=== PATIENT | male | born 1990 | race Caucasian/White ===

== ENCOUNTER 2022-05-13 18:33 | Emergency (ER) | payer SELFPAY ==
--- NOTE | ~2022-05-13 | XR_ITS ---
EXAMINATION: XR HAND, RIGHT CLINICAL INFORMATION: Slammed thumb in car door COMPARISON: None TECHNIQUE: PA, lateral, and oblique views of the right hand. FINDINGS: The bones and soft tissues are normal. No fracture. Alignment is anatomic. Joint spaces are maintained. No erosions or soft tissue calcifications. XR/XR hand RT 2V IMPRESSION: Normal right hand.
[2022-05-13 19:40] VITALS: BP 115/69; PULSE 65; RESP 16; TEMP 36.6; O2SAT 99; BMI 22.9
--- NOTE | 2022-05-13 19:41 | ED_ITS ---
HPI - Extremity Problem General Chief complaint: Extremity Injury, Upper <Judy Escoto CNP - Last Filed: 05/13/22 19:45> Stated complaint: pinched right hand thumb with car door <Judy Escoto CNP - Last Filed: 05/13/22 19:45> Time Seen by Provider: 05/13/22 22:54 <Judy Escoto CNP - Last Filed: 05/13/22 19:45> Source: patient <Joanna Nguyen MD - Last Filed: 05/13/22 23:28> Mode of arrival: ambulatory <Joanna Nguyen MD - Last Filed: 05/13/22 23:28> Limitations: no limitations <Joanna Nguyen MD - Last Filed: 05/13/22 23:28> History of Present Illness HPI Narrative: Patient comes to the emergency room complaining of left thumb pain. Patient states that yesterday he slammed his thumb in the car door. Patient denies any other injury. <Joanna Nguyen MD - Last Filed: 05/13/22 23:28> Related Data Home medications: Previous Rx's Medication Instructions Recorded acetaminophen 500 mg tablet 500 mg PO Q6H PRN fever or pain 05/13/22 #14 tabs <Judy Escoto CNP - Last Filed: 05/13/22 19:45> Allergies/Adverse reactions: Allergies Allergy/AdvReac Type Severity Reaction Status Date / Time No Known Allergies Allergy Verified 05/13/22 19:44 <Judy Escoto CNP - Last Filed: 05/13/22 19:45> Review of Systems Review of Systems: Constitutional : No Weight loss, No Fever, No Chills, No Night Sweats, No Fatigue, No Malaise ENT/Mouth : No Hearing loss, No Ear Pain, No Nasal Congestion, No Sinus Pain, No Hoarseness, No sore throat, No Rhinorrhea, No Swallowing Difficulty Eyes: No Eye Pain, No Swelling, No Redness, No Foreign Body, No Discharge, No Vision Changes Cardiovascular : No Chest Pain, No SOB, No Dyspnea on Exertion, No Orthopnea, No Edema, No Palpitations Respiratory : No Cough, No Sputum, No Wheezing, No Smoke Exposure, No Dyspnea Gastrointestinal : No Nausea, No Vomiting, No Diarrhea, No Constipation, No abdominal Pain, No Hematochezia, No Melena Genitourinary : no irregular bleeding, No Dysuria, No Urinary Frequency, No Hematuria, No Urinary Incontinence, No Urgency, No Flank Pain, No Urinary Flow Changes, No Hesitancy Musculoskeletal : Complaining of pain in the left thumb No Myalgias, No Joint Swelling Skin : No Skin Lesions, No rash Neuro : No Weakness, No Numbness, No Paresthesias, No Loss of Consciousness, No Dizziness, No Headache Psych : No Anxiety/Panic, No Depression, No SI/HI/AH/VH, No Social Issues, Heme/Lymph: No Bruising, No Bleeding,No Lymphadenopathy Endocrine : No Polyuria, No Polydipsia, No Temperature Intolerance <Joanna Nguyen MD - Last Filed: 05/13/22 23:28> COUNT INCLUDES THE [facility] Social History Social History: Social History Advance Directives: No <Judy Escoto CNP - Last Filed: 05/13/22 19:45> Physical Exam Vital Signs: Vital Signs: Last Vital Signs Temp 98 F 05/13/22 19:40 Pulse 65 05/13/22 19:40 Resp 16 05/13/22 19:40 BP 115/69 05/13/22 19:40 Pulse Ox 99 05/13/22 19:40 O2 Del Method 05/13/22 19:40 BMI result Body Mass Index 22.9 <Judy Escoto CNP - Last Filed: 05/13/22 19:45> Vital Signs: Last Vital Signs Temp 98 F 05/13/22 19:40 Pulse 65 05/13/22 19:40 Resp 16 05/13/22 19:40 BP 115/69 05/13/22 19:40 Pulse Ox 99 05/13/22 19:40 O2 Del Method 05/13/22 19:40 BMI result Body Mass Index 22.9 <Joanna Nguyen MD - Last Filed: 05/13/22 23:28> Const: Other: Appearance: Alert. Oriented X3. No acute distress. Eyes: Pupils equal, round and reactive to light. ENT: Pharynx normal. Neck: Normal inspection. Neck supple. No lymph nodes noted. No crepitus CVS: Normal heart rate and rhythm. Pulses normal. Normal S1 and S2 Respiratory: No respiratory distress. Breath sounds normal. No Wheezing. No ra les Abdomen: Soft and nontender. No rigidity. No distention. Skin: Skin warm and dry. Subungual hematoma in the left thumb Extremities: No lower extremity edema. No deformity of the left hand Neuro: Oriented X 3. No motor deficit. No sensory deficit. Moving all extremities. No slurred speech. CN 2 through 12 grossly intact Psych: calm, cooperative, normal affect <Joanna Nguyen MD - Last Filed: 05/13/22 23:28> Course Course Course Narrative: This is an RME: Additional HPI, ROS, PE not included below will be deferred to primary provider. Patient is a 31-year-old male, right-hand dominant, who presents emergency department for evaluation of traumatic right thumb pain. He states yesterday he slammed his finger in the car door. Took ibuprofen this morning with some relief. PE: full AROM to PIP, DIP held in full extension, unable to flex, with erythema, swelling, subungual hematoma. Plan: XR right hand, ibuprofen for pain <Judy Escoto CNP - Last Filed: 05/13/22 19:45> Medications Administered Discontinued Medications Generic Name Dose Route Start Last Admin Trade Name Freq PRN Reason Stop Dose Admin Ibuprofen 600 mg 05/13/22 19:43 05/13/22 19:47 Ibuprofen 600 Mg Tablet PO 05/13/22 19:44 600 mg ONCE ONE Administration <Judy Escoto CNP - Last Filed: 05/13/22 19:45> Medications Administered Discontinued Medications Generic Name Dose Route Start Last Admin Trade Name Freq PRN Reason Stop Dose Admin Ibuprofen 600 mg 05/13/22 19:43 05/13/22 19:47 Ibuprofen 600 Mg Tablet PO 05/13/22 19:44 600 mg ONCE ONE Administration <Joanna Nguyen MD - Last Filed: 05/13/22 23:28> Medical Decision Making Medical Decision Making [facility] Narrative: -patient has a subungual hematoma. -the nail was cauterized and drained, patient given ibuprofen in triage <Joanna Nguyen MD - Last Filed: 05/13/22 23:28> Differential Diagnosis Differential Diagnoses: The differential diagnosis associated with the presentation includes (Sub ungual hematoma, thumb fracture, contusion) <Joanna Nguyen MD - Last Filed: 05/13/22 23:28> Independent Interpretation I performed an independent interpretation of an: Plain X-Ray (My interpretation of hand x-ray, no fracture) <Joanna Nguyen MD - Last Filed: 05/13/22 23:28> Radiology Impression Discussion of test interpretation with radiology: I have reviewed the radiologist's reading. <Joanna Nguyen MD - Last Filed: 05/13/22 23:28> Radiologist Impression: FINDINGS: The bones and soft tissues are normal. No fracture. Alignment is anatomic. Joint spaces are maintained. No erosions or soft tissue calcifications.? XR/XR hand RT 2V IMPRESSION: Normal right hand. <Joanna Nguyen MD - Last Filed: 05/13/22 23:28> Discharge Plan Discharge Clinical Impression: Subungual hematoma of finger <Judy Escoto CNP - Last Filed: 05/13/22 19:45> Patient Disposition: Home, Self-Care <Judy Escoto CNP - Last Filed: 05/13/22 19:45> Instructions: Subungual Hematoma (ED) <Judy Escoto CNP - Last Filed: 05/13/22 19:45> Additional Instructions: Please follow-up with your primary care physician tomorrow. If you have any worsening or new symptoms, please return to the emergency room or call 911 <Judy Escoto CNP - Last Filed: 05/13/22 19:45> Prescriptions: New acetaminophen 500 mg tablet 500 mg PO Q6H PRN (Reason: fever or pain) Qty: 14 0RF <Judy Escoto CNP - Last Filed: 05/13/22 19:45>
[2022-05-13] MEDS: Ibuprofen 600 MG TABLET PO (19:47)
== END 2022-05-14 01:08 | disposition home or self-care (01) ==
PROVIDERS: Emergency Provider Emergency Medicine
DX: S60.011A Contusion of right thumb without damage to nail, initial encounter (principal); Y29.XXXA Contact with blunt object, undetermined intent, initial encounter; Y93.9 Activity, unspecified; Y92.9 Unspecified place or not applicable; Y99.9 Unspecified external cause status
CPT/HCPCS: 73120; 99283

== ENCOUNTER 2023-05-26 10:04 | Emergency (ER) | payer SELFPAY ==
[2023-05-26 10:17] VITALS: BP 109/66; PULSE 90; RESP 18; TEMP 35.9; O2SAT 97; BMI 25.1
[2023-05-26 11:07] LABS: COVID-19 Test Negative (Negative); IDNOW Serial# 152EDE1D
[2023-05-26 11:12] LABS: IDNOW Serial# 9DB6401D; Influenza A Negative (Negative); Influenza B2 Negative (Negative)
--- NOTE | 2023-05-26 11:59 | ED.GENADULT ---
HPI - General Adult General Chief complaint: Upper Respiratory Symptoms Stated complaint: Vomiting/Runny nose Time Seen by Provider: 05/26/23 11:29 Source: patient and RN notes reviewed Mode of arrival: ambulatory Limitations: no limitations History of Present Illness HPI narrative: This is a 32-year-old male, with no known medical problems, presenting to the emergency department complaints of nausea, vomiting, nasal congestion since yesterday. Patient states that 2 days ago he ate meatloaf and states that later on that evening he felt a gurgling in his stomach. He states that all day he could not consume any foods due to nausea and vomiting. He states that he was able to eat breakfast this morning without difficulty. No nausea or vomiting at this moment. Denies any fevers, chills, headaches, dizziness, chest pain, abdominal pain, shortness of breath, diarrhea. Denies hematemesis. No bloody or black stool. No sick contacts. No other complaints or concerns at this time. MD complaint: Nausea vomiting Onset (ago): day(s) Radiation: non-radiation Quality: aching Pain Consistency: constant Relieving factors: none Exacerbating factors: none Associated symptoms: nausea/vomiting Treatments prior to arrival: none Related Data Previous Rx's Medication Instructions Recorded acetaminophen 500 mg tablet 500 mg PO Q6H PRN fever or pain 05/13/22 #14 tabs ondansetron 4 mg disintegrating 4 mg PO Q6-8H PRN nausea and 05/26/23 tablet vomiting #10 tabs Allergies Allergy/AdvReac Type Severity Reaction Status Date / Time No Known Allergies Allergy Verified 05/26/23 10:19 Review of Systems Review of Systems: Yes all other systems are reviewed and are negative Constitutional: Constitutional: Reports as per [facility] Past Medical History Attestation statement: The following information was validated with the patient. Social History Social History Advance Directives: No Advance Directives Information Provided: Yes Physical Exam ED Vital Signs: Vital Signs - 24 hr 05/26/23 10:17 Temperature 96.7 F L Pulse Rate 90 Respiratory Rate 18 Blood Pressure 109/66 Pulse Oximetry 97 Oxygen Delivery Method Room Air BMI result Body Mass Index 25.1 Const General: cooperative, comfortable and no acute distress Orientation/consciousness: patient oriented x3 Limitations: no limitations HENMT Other: Moist mucous membranes Head: Yes normal to inspection, Yes normocephalic and Yes atraumatic Ears: hearing grossly normal bilaterally General nose exam: Normal external nose present Face and sinus: Yes normal facial exam Mouth: Normal oral and palatal mucosa present, oropharynx normal and moist mucous membranes Throat: Yes posterior oropharynx normal Eyes General: appearance normal, both eyes and all related structures Eyelids: Yes eyelids normal Conjunctivae: conjunctivae normal Sclerae: sclerae normal Pupils: Equal, round and reactive pupils present EOM: EOMs intact bilaterally Neck Neck: Yes normal visual inspection, Yes full ROM and Yes no lymphadenopathy Lymphatic: no lymphadenopathy noted Chest Chest palpation & inspection: normal inspection of the chest Resp Effort & Inspection: normal respiratory effort and able to speak in complete sentences Auscultation: clear to auscultation bilaterally, no crackles, no rales, no rhonchi and no wheezes Cardio Rate: regular rate Rhythm: regular rhythm Heart sounds: S1 normal heart sound present and S2 normal heart sound present GI Other: Abdomen is soft, nontender, nondistended, hyperactive bowel sounds present in all 4 quadrants Inspection: Yes normal to inspection Skin General skin exam: no rashes or lesions noted Trauma: no lacerations or abrasions Wounds: no wounds Neuro General: patient oriented x3 and moves all extremities Cranial nerves: Yes Equal, round and reactive pupils present Extrem General: Yes normal to inspection Right upper extremity: normal to inspection Left upper extremity: normal to inspection Right lower extremity: normal to inspection Left lower extremity: normal to inspection Medical Decision Making Medical Decision Making [facility] Narrative: This is a 32-year-old male, with no known medical problems, presenting to the emergency department for evaluation of nausea and vomiting as well as runny nose since yesterday. On arrival, patient nontoxic appearing, vital signs within normal limits. He currently is eating [employer] at the bedside. Without any nausea or vomiting. Abdomen is soft and nontender. Differential diagnoses include gastritis, gastroenteritis, nausea vomiting, viral syndrome, flu, COVID. Less likely acute abdomen given soft and nontender abdomen. He has no urinary symptoms. No bloody or black stool. No hemetemesis. Patient is well appearing, he is eating and drinking without difficulty. discharged with zofran, given return precautions. Differential Diagnosis Differential Diagnoses: The differential diagnosis associated with the presentation includes see above Lab Data [facility] Lab Attestation statement: I reviewed the patient's lab results. negative COVID, flu Labs: Lab Results 05/26/23 Range/Units 10:48 COVID-19 ([facility]) Negative (Negative) COVID-19 Clin Com See Note Influenza Type A ([facility]) Negative (Negative) Influenza Type B ([facility]) Negative (Negative) Influenza A & B Note See Note Radiology Impression Discussion of test interpretation with radiology: I have reviewed the radiologist's reading. External Record Review External record reviewed: Inpatient record, Office record, Outpatient record, Prior outpatient labs, Prior outpatient radiology, Primary care record and Outside ED record Discharge Plan Discharge Clinical Impression: Nausea & vomiting Patient Disposition: Home, Self-Care Instructions: Acute Nausea and Vomiting (ED) Additional Instructions: Your seen in the emergency department due to nausea and vomiting. This could be due to a virus or something that you have eaten. This may also be attributed to marijuana use. This could be due to a virus, it is very important that you drink plenty of fluids and get plenty of rest. I am also sending you a prescription for Zofran, this is an antinausea medication, take only as needed. Stick to a bland diet, avoid spicy, fried foods or dairy containing products until your symptoms have resolved. If any new or worsening symptoms occur including but limited to chest pain, shortness of breath, abdominal pain, please return for re-evaluation. Prescriptions: New ondansetron 4 mg tablet,disintegrating 4 mg PO Q6-8H PRN (Reason: nausea and vomiting) Qty: 10 0RF No Action acetaminophen 500 mg tablet 500 mg PO Q6H PRN (Reason: fever or pain) Qty: 14 0RF Stand Alone Forms: Work/School Release Interventions: ED Discharge Assessment Last Done: 05/26/23 12:07 Discharge Date/Time: 05/26/23 12:10
== END 2023-05-26 12:10 | disposition home or self-care (01) ==
PROVIDERS: Emergency Provider Emergency Medicine
DX: R11.2 Nausea with vomiting, unspecified (principal); R09.81 Nasal congestion; Z11.52 Encounter for screening for COVID-19
CPT/HCPCS: 87502; 87635; 99282; 99283